=== PATIENT | female | born 1955 | race Caucasian/White ===

== ENCOUNTER 2017-05-31 13:54 | Emergency (ER) | payer BC ==
[~2017-05-31] VITALS: Ht 165.1 cm; Wt 76.2 kg
[2017-05-31 14:00] VITALS: TEMP 36.7; Ht 165.1 cm; Wt 76.2 kg
[2017-05-31] MEDS ORDERED: SODIUM CHLORIDE 0.9% 1000ML 1,000 ML IV STA ×2 (14:06)
[2017-05-31] MEDS ORDERED: BUPR150T7 PO (14:37)
[2017-05-31] MEDS ORDERED: PRT/20 PO (14:37)
[2017-05-31] MEDS ORDERED: VENL150C PO (14:37)
[2017-05-31] MEDS ORDERED: CLBPO15 TOP (14:37)
[2017-05-31] MEDS ORDERED: LEVO25TA5 PO (14:37)
[2017-05-31 14:38] LABS: BASO % 0.2 %; BASO ABS # 0.02 K/uL (0-0.2); COMPLETE YES; EOS % 5.2 %; HEMATOCRIT 38.8 % (37-47); IG% 0.3 %; LYMPH % 18.3 %; MEAN CELL VOLUME 91.1 fL (80-100); MEAN CORPUSCULAR HEMOGLOBIN 30.3 pg (25-34); MEAN CORPUSCULAR HGB CONC 33.2 g/dl (32-36); MEAN PLATELET VOLUME 9.3 fL (7.4-10.4); MONO % 8.9 %; NEUT % 67.1 %; PLATELET COUNT 312 K/uL (130-400); RED BLOOD COUNT 4.26 M/uL (4.2-5.4); WHITE BLOOD COUNT 8.73 K/uL (4.8-10.8)
[2017-05-31] MEDS ORDERED: ACET-1256 PO (14:40)
[2017-05-31] MEDS ORDERED: IBUP-1450 PO (14:40)
[2017-05-31 14:43] LABS: URINE APPEARANCE CLEAR (CLEAR); URINE BILIRUBIN NEG (NEG); URINE COLOR YELLOW; URINE NITRITE NEG (NEG); URINE SPECIFIC GRAVITY 1.014 (1.000-1.030); UROBILINOGEN NEG (NEG)
[2017-05-31 14:51] LABS: MANUAL MICROSCOPIC REQUIRED? NO; REVIEW REQ? NO
[2017-05-31 14:57] LABS: BUN/CREATININE RATIO 14.5 (10-20); CALCIUM 9.3 mg/dl (8.5-10.1); CREATININE 1.2 mg/dl (0.60-1.20); POTASSIUM 4.2 mmol/L (3.5-5.1)
[2017-05-31 15:01] LABS: ALB/GLOB RATIO 0.9 (0.9-2)
--- NOTE | 2017-05-31 15:37 | DIAGNOSTIC IMAGING REPORT ---
ABD/PELVIS WITHOUT FOR STONE CLINICAL HISTORY: 61 years-old Female presenting with LEFT ABD PAIN, HEMATURIA. TECHNIQUE: Multidetector CT of the abdomen and pelvis was performed without the use of intravenous contrast. IV contrast: None. A dose lowering technique was used consistent with the principles of ALARA (as low as reasonably achievable). COMPARISON: None. CT DOSE (mGy.cm): The estimated cumulative dose is 911.44 mGycm. 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 Lung bases: Dependent opacities at the lung bases, likely atelectasis. Normal heart size. No pericardial or pleural effusion. Liver: Normal morphology. No liver lesion. Patent hepatic vasculature. Biliary: No intrahepatic or extrahepatic biliary ductal dilatation. Normal gallbladder. Pancreas: Normal. Spleen: Normal. Adrenal glands: Normal. Kidneys and ureters: Hypodensities in the kidneys incompletely evaluated without intravenous contrast but likely cysts. No hydronephrosis. No nephrolithiasis. Ureters normal. Gastrointestinal tract: Mild stool burden throughout the colon. Mildly dilated cecum. Inspissated material in the distal small bowel may indicate delayed transit. Focal pericolonic inflammatory change at the proximal sigmoid colon with central fat (series 2 image 93). Peritoneal cavity: No free fluid or intraperitoneal gas. Bladder: Normal. Pelvic organs: Uterus and ovaries normal. Vasculature: Minimal atherosclerosis of the normal caliber abdominal aorta. Lymph nodes: Few prominent pericaval and portacaval lymph nodes, likely reactive. Abdominal wall: Fat-containing right inguinal hernia. Musculoskeletal: Normal. IMPRESSION: 1. Findings consistent with epiploic appendage at the sigmoid colon. 2. No evidence of nephrolithiasis. Electronically signed by: Brian Pineda M.D. 05/31/2017 3:36 PM Dictated Date/Time: 05/31/2017 3:27 PM
[2017-05-31] MEDS ORDERED: ONDA4TAB10 SL (16:12)
[2017-05-31] MEDS ORDERED: HYDR-5688 PO (16:12)
--- NOTE | 2017-05-31 16:12 | EMERGENCY ROOM VISIT NOTE ---
History First contact with patient: 14:01 Chief Complaint: ABDOMINAL PAIN Stated Complaint: PAIN IN LOWER LEFT ABDOMINAL AREA Nursing Triage Summary: triage note; pt reports left lower abd pain since this am. pt reports pain is getting worse. pt reports she was seen at [facility] and sent to ed for further eval. History of Present Illness Patient is a 61-year-old white female with past medical history significant for GERD and hypothyroidism who presents the emergency department for evaluation of left sided abdominal pain that started this morning. She noticed pain in the left lower quadrant when she woke up this morning. She describes it as a dull, constant ache, occasionally becomes more sharp. She presently rates it a 5/10. It is better when she lays flat, and worse when she walks or moves. She denies any nausea or vomiting and states that she normally today. She denies any dysuria, frequency, urgency or hematuria. She had a normal formed brown bowel movement this morning without melena or hematochezia. She's never had symptoms similar to this previously. She has a history of GERD which is controlled with medications. She had a colonoscopy at age 49 which was normal for her. She is postmenopausal, denies any significant gynecologic history. She has no known history of diverticulitis. She was seen at a [facility] facility and referred to the emergency department for further care and evaluation. Review of Systems Review of systems as per HPI. All other systems reviewed were negative. 10 systems reviewed. Past Medical/Surgical History Medical Problems: (1) Depression (2) GERD (gastroesophageal reflux disease) (3) Hypothyroidism Surgical Problems: (1) H/O colonoscopy (2) H/O tubal ligation (3) History of herniorrhaphy Electronic medical records are reviewed and summarized as above/below. See Problem List. Social History Smoking Status: Never Smoker Alcohol Use: none Marital Status: Housing Status: lives with significant other Occupation Status: retired Current/Historical Medications Scheduled Acetaminophen (Tylenol), 1,000 MG PO UD Bupropion Hcl (Wellbutrin Sr), 150 MG PO BID Clobetasol Propionate (Clobetasol Propionate), 1 APPLN TOP BID Levothyroxine Sodium (Levothyroxine Sodium), 0.5 TAB PO QAM Pantoprazole (Protonix), 20 MG PO QAM Venlafaxine Hcl (Effexor Xr), 1 CAP PO QAM Scheduled PRN Hydrocodone/Acetaminophen 5MG/325MG (Lott 5MG/325MG), 1-2 TABLETS PO Q4 PRN for Pain Ibuprofen (Motrin), 600 MG PO Q6H PRN for Pain Ondasetron Odt (Zofran Odt), 4 MG SL Q6H PRN for Nausea or Vomiting Physical Exam Vital Signs Date Time Temp Pulse Resp B/P (MAP) Pulse Ox O2 Delivery O2 Flow Rate FiO2 05/31/17 16:26 82 18 107/63 97 Room Air 05/31/17 15:02 81 20 117/64 96 Room Air 05/31/17 14:00 36.7 88 18 116/75 98 Room Air Physical Exam CONSTITUTIONAL: Patient is a pleasant, well-appearing 61-year-old white female who is awake and alert and in mild distress due to her abdominal pain. EYES: Pupils equal, round, reactive to light and accommodation. EOMs intact without nystagmus. Sclera are anicteric. ENT: Tympanic membranes intact, with normal landmarks. External canals are clear. Oral and nasopharynx are clear. Mucous membranes are moist, no lesions , tongue and gums appear normal. NECK: No bruits auscultated. Supple without lymphadenopathy. No thyromegaly. No meningeal signs. Full active range of motion without discomfort. CARDIOVASCULAR: Regular rate and rhythm, with normal S1 and S2, no murmur or gallop or rub is heard. No carotid bruits auscultated. No JVD. Peripheral pulses easily palpable. RESPIRATORY: Breath sounds equal and clear to auscultation without wheezes, rales, or rhonchi heard. Full and equal chest expansion without accessory muscle use or retractions. ABDOMEN: Bowel sounds are present. Abdomen is soft, nondistended, tender to percussion and palpation in the left lower and left upper quadrants, without guarding, rebound or rigidity. INTEGUMENTARY: No lesions or rash, normal skin turgor. LYMPH: No lymphadenopathy. Medical Decision & Procedures ER Provider Diagnostic Interpretation: ABD/PELVIS WITHOUT FOR STONE CLINICAL HISTORY: 61 years-old Female presenting with LEFT ABD PAIN, HEMATURIA. TECHNIQUE: Multidetector CT of the abdomen and pelvis was performed without the use of intravenous contrast. IV contrast: None. A dose lowering technique was used consistent with the principles of ALARA (as low as reasonably achievable). COMPARISON: None. CT DOSE (mGy.cm): The estimated cumulative dose is 911.44 mGycm. FINDINGS: [employer] Software Consultant topogram: Unremarkable. Lung bases: Dependent opacities at the lung bases, likely atelectasis. Normal heart size. No pericardial or pleural effusion. Liver: Normal morphology. No liver lesion. Patent hepatic vasculature. Biliary: No intrahepatic or extrahepatic biliary ductal dilatation. Normal gallbladder. Pancreas: Normal. Spleen: Normal. Adrenal glands: Normal. Kidneys and ureters: Hypodensities in the kidneys incompletely evaluated without intravenous contrast but likely cysts. No hydronephrosis. No nephrolithiasis. Ureters normal. Gastrointestinal tract: Mild stool burden throughout the colon. Mildly dilated cecum. Inspissated material in the distal small bowel may indicate delayed transit. Focal pericolonic inflammatory change at the proximal sigmoid colon with central fat (series 2 image 93). Peritoneal cavity: No free fluid or intraperitoneal gas. Bladder: Normal. Pelvic organs: Uterus and ovaries normal. Vasculature: Minimal atherosclerosis of the normal caliber abdominal aorta. Lymph nodes: Few prominent pericaval and portacaval lymph nodes, likely reactive. Abdominal wall: Fat-containing right inguinal hernia. Musculoskeletal: Normal. IMPRESSION: 1. Findings consistent with epiploic appendage at the sigmoid colon. 2. No evidence of nephrolithiasis. Laboratory Results 05/31/17 14:25 Red Blood Count 4.26, Mean Corpuscular Volume 91.1, Mean Corpuscular Hemoglobin 30.3, Mean Corpuscular Hemoglobin Concent 33.2, Mean Platelet Volume 9.3, Neutrophils (%) (Auto) 67.1, Lymphocytes (%) (Auto) 18.3, Monocytes (%) (Auto) 8.9, Eosinophils (%) (Auto) 5.2, Basophils (%) (Auto) 0.2, Neutrophils # (Auto) 5.85, Lymphocytes # (Auto) 1.60, Monocytes # (Auto) 0.78, Eosinophils # (Auto) 0.45, Basophils # (Auto) 0.02 05/31/17 14:25 Test 05/31/17 14:25 White Blood Count 8.73 K/uL (4.8-10.8) Red Blood Count 4.26 M/uL (4.2-5.4) Hemoglobin 12.9 g/dL (12.0-16.0) Hematocrit 38.8 % (37-47) Mean Corpuscular Volume 91.1 fL (80-100) Mean Corpuscular Hemoglobin 30.3 pg (25-34) Mean Corpuscular Hemoglobin Concent 33.2 g/dl (32-36) Platelet Count 312 K/uL (130-400) Mean Platelet Volume 9.3 fL (7.4-10.4) Neutrophils (%) (Auto) 67.1 % Lymphocytes (%) (Auto) 18.3 % Monocytes (%) (Auto) 8.9 % Eosinophils (%) (Auto) 5.2 % Basophils (%) (Auto) 0.2 % Neutrophils # (Auto) 5.85 K/uL (1.4-6.5) Lymphocytes # (Auto) 1.60 K/uL (1.2-3.4) Monocytes # (Auto) 0.78 K/uL (0.11-0.59) Eosinophils # (Auto) 0.45 K/uL (0-0.5) Basophils # (Auto) 0.02 K/uL (0-0.2) RDW Standard Deviation 45.9 fL (36.4-46.3) RDW Coefficient of Variation 13.7 % (11.5-14.5) Immature Granulocyte % (Auto) 0.3 % Immature Granulocyte # (Auto) 0.03 K/uL (0.00-0.02) Urine Color YELLOW Urine Appearance CLEAR (CLEAR) Urine pH 6.0 (4.5-7.5) Urine Specific [place] 1.014 (1.000-1.030) Urine Protein NEG (NEG) Urine Glucose (UA) NEG (NEG) Urine Ketones NEG (NEG) Urine Occult Blood 2+ (NEG) Urine Nitrite NEG (NEG) Urine Bilirubin NEG (NEG) Urine Urobilinogen NEG (NEG) Urine Leukocyte Esterase NEG (NEG) Urine WBC (Auto) 0 /hpf (0-5) Urine RBC (Auto) 10-30 /hpf (0-4) Urine Hyaline Casts (Auto) 0 /lpf (0-5) Urine Epithelial Cells (Auto) 10-20 /lpf (0-5) Urine Bacteria (Auto) NEG (NEG) Anion Gap 4.0 mmol/L (3-11) Est Creatinine Clear Calc Drug Dose 49.6 ml/min Estimated GFR () 56.1 Estimated GFR (Non- 48.4 BUN/Creatinine Ratio 14.5 (10-20) Calcium Level 9.3 mg/dl (8.5-10.1) Total Bilirubin 0.3 mg/dl (0.2-1) Aspartate Amino Transf (AST/SGOT) 17 U/L (15-37) Alanine Aminotransferase (ALT/SGPT) 27 U/L (12-78) Alkaline Phosphatase 86 U/L (45-117) Total Protein 7.2 gm/dl (6.4-8.2) Albumin 3.5 gm/dl (3.4-5.0) Globulin 3.7 gm/dl (2.5-4.0) Albumin/Globulin Ratio 0.9 (0.9-2) Lipase 297 U/L (73-393) Medications Administered Medications (Trade) Dose Ordered Sig/Rosa Route Start Time Stop Time Status Last Admin Dose Admin Sodium Chloride 1,000 ml @ 999 mls/hr Q1H1M STAT IV 05/31/17 14:06 05/31/17 15:06 DC 05/31/17 14:30 999 MLS/HR Sodium Chloride 1,000 ml @ 250 mls/hr Q4H STAT IV 05/31/17 14:06 05/31/17 16:50 DC 05/31/17 15:17 250 MLS/HR ED Course The patient was seen and evaluated as above. She has no old records are facility for review. IV lock was initiated and she was hydrated with normal saline solution. She declined pain and nausea medications in the emergency department. CBC with differential, CMP, lipase and urinalysis were obtained. Patient's laboratory studies noted a normal white count. H&H is 12.9 and 38.8. Electrolytes, renal functions, liver functions and lipase are all completely within normal limits. Urine dip noted 250 of blood, and urine microscopy noted 2+ occult blood and 10-30 rbc's. No other indicators for infection. Given her left-sided abdominal pain with hematuria, CT scan of the abdomen and pelvis without contract was obtained. Findings are consistent with epiploic appendicitis of the sigmoid colon. There was no evidence for hydronephrosis, nephrolithiasis or ureteral abnormality. There is no free fluid or intraperitoneal gas. Bladder and pelvic organs were unremarkable. All laboratory and diagnostic imaging studies were reviewed with patient and his significant other. Supportive care measures were advised. She was encouraged to use [id number] medications for discomfort, but was provided a prescription for Lott and Zofran to use if needed. She was advised to follow -up with her primary care provider next week for recheck. She is educated on the worrisome signs or symptoms for which she should return to the emergency department. Differential diagnoses entertained included UTI, pyelonephritis, renal colic, diverticulitis, diverticulosis, mass or malignancy, bowel instruction, perforation, abscess, ovarian cyst, among others. Medical Decision See Emergency Department course. [facility] Drug Monitoring Program Search Results: patient reviewed within database, no issues identified Medication Reconcilliation Current Medication List: was personally reviewed by me Blood Pressure Screening Patient's blood pressure: Normal blood pressure Blood pressure disposition: Did not require urgent referral Impression Primary Impression: Epiploic appendagitis Departure Information Prescriptions Ondasetron Odt (ZOFRAN ODT) 4 Mg Tab 4 MG SL Q6H Y for Nausea or Vomiting, #20 TAB Prov: Lauren Khan PA 05/31/17 Hydrocodone/Acetaminophen 5MG/325MG (Lott 5MG/325MG) Tab 1-2 TABLETS PO Q4 Y for Pain, #20 TAB For Initial Treatment Prov: Lauren Khan PA 05/31/17 Referrals Gogo Baker (PCP) Patient Instructions My [facility] Additional Instructions Hydrocodone/Acetaminophen (Lott) 5/325 mg: Take 1-2 pills every four hours for breakthrough pain. Avoid alcohol, operating machinery or dangerous equipment, working on ladders or roofs, DRIVING, or situations where being under the influence may be dangerous. It is recommended to use an [id number] stool softener such as Colace, 100mg twice daily while taking this medication to avoid constipation. Ibuprofen(Motrin, Advil) may be used for fever or pain. Use 600mg every six hours as needed. Take with food. Avoid using more than 2400mg in a 24 hour period. Do not use 2400mg per day for more than three consecutive days without physician direction. Prolonged inappropriate use can lead to stomach upset or ulcers. This is available over the counter and typically comes in 200mg tablets. (AND/OR) Acetaminophen(Tylenol) may be used for fever or pain. Use 1000mg every eight hours as needed. Avoid using more than 3000mg in a 24 hour period. This is available over the counter. Zofran(odansetron) tablets 4mg: Take one and allow it to dissolve in your mouth every four hours as needed for nausea or vomiting. Rest and drink plenty of fluids as tolerated. Slow sips of water or sports drinks are recommended instead of large amounts all at once. Continue current medications. Once your stomach is settled start with a clear liquid diet (jello, soup broth, etc.) and then advance as tolerated. You should avoid full, heavy meals for about 24 hrs from the time your symptoms resolved. Return to the ER immediately for worsening or persistent abdominal pain, vomiting, fevers, chest pains, difficulty breathing, black or bloody stools, worsening of your condition, or as needed. Follow up with your primary physician next week for a recheck of your current condition.
[2017-05-31 16:26] VITALS: BP 107/63; PULSE 82; O2SAT 97
== END 2017-05-31 16:33 | disposition home or self-care (01) ==
LOC: MERGE 13:57 → C.EDB 13:57 → C.EDA 16:33
DX: K63.89 Other specified diseases of intestine (principal); Q43.8 Other specified congenital malformations of intestine; E03.9 Hypothyroidism, unspecified; K21.9 Gastro-esophageal reflux disease without esophagitis; F32.9 Major depressive disorder, single episode, unspecified; Z79.899 Other long term (current) drug therapy

== ENCOUNTER 2017-07-20 14:41 | Emergency (ER) | payer BC ==
[~2017-07-20] VITALS: Ht 165.1 cm; Wt 71.5 kg
[~2017-07-20 14:41] MED LIST: ACET-1256 PO; BUPR150T7 PO; CLBPO15 TOP; HYDR-5688 PO; IBUP-1450 PO; LEVO25TA5 PO; ONDA4TAB10 SL; PRT/20 PO; VENL150C PO
[2017-07-20 14:53] VITALS: Ht 165.1 cm; Wt 71.5 kg
[2017-07-20] MEDS ORDERED: SODIUM CHLORIDE 0.9% 500ML 500 ML IV STA ×2 (15:19→15:21)
[2017-07-20] MEDS ORDERED: ACETAMINOPHEN 325 MG TAB PO STA (15:19)
[2017-07-20] MEDS ORDERED: SODIUM CHLORIDE 0.9% 1000ML 1,000 ML IV STA (15:19)
--- NOTE | 2017-07-20 15:25 | EMERGENCY ROOM VISIT NOTE ---
History Report prepared by Moshe: Carlo Hernandez Under the Supervision of: Dr. Kathryn Wolf M.D. First contact with patient: 15:06 Chief Complaint: ILLNESS Stated Complaint: FEVER, CHILLS, BODY ACHES, HEADACHE History of Present Illness The patient is a 61 year old female who presents to the Emergency Room with complaints of a fever that began 6 days ago. She states that her fevers have been as high as 102.5F. In triage, her temperature was 101F. Over this time, she has also had body aches, a headache, and weakness. She denies any cough, sore throat, shortness of breath, nausea, vomiting, diarrhea, melena, hematochezia, and abnormal urinary symptoms. She has not received an influenza vaccination yet. She has been alternating Tylenol and Ibuprofen since her symptoms began. Her last dose of medication was early this morning. She denies any tick exposure. Source of History: patient Onset: 6 days ago Position: other (global) Symptom Intensity: 101-102F Quality: other (Fever) Timing: waxes/wanes Associated Symptoms: + headache, + weakness, No sorethroat, No cough, No SOB , No nausea, No vomiting, No melena, No hematochezia, No diarrhea, No urinary symptoms Note: She has been having body aches. Review of Systems See HPI for pertinent positives & negatives. A total of 10 systems reviewed and were otherwise negative. Past Medical & Surgical Medical Problems: (1) Depression (2) GERD (gastroesophageal reflux disease) (3) Hypothyroidism Surgical Problems: (1) H/O colonoscopy (2) H/O tubal ligation (3) History of herniorrhaphy Family History Autoimmune disorder FHx: Crohn's disease Kidney disease Social History Smoking Status: Never Smoker Smokeless Tobacco Use: No Drug Use: none Marital Status: Housing Status: lives with family Current/Historical Medications Scheduled Bupropion Hcl (Wellbutrin Sr), 150 MG PO BID Cephalexin Monohydrate (Keflex), 500 MG PO QID Clobetasol Propionate (Clobetasol Propionate), 1 APPLN TOP BID Levothyroxine Sodium (Levothyroxine Sodium), 25 MCG PO QAM Pantoprazole (Protonix), 20 MG PO QAM Venlafaxine Hcl (Effexor Xr), 1 CAP PO QAM Venlafaxine Hcl (Effexor), 37.5 MG PO QAM Scheduled PRN Acetaminophen (Tylenol), 1,000 MG PO DIRECTED PRN for Pain or Fever Ibuprofen (Motrin), 600 MG PO Q6H PRN for Pain Allergies Coded Allergies: No Known Allergies (Unverified , 07/20/17) Physical Exam Vital Signs Date Time Temp Pulse Resp B/P (MAP) Pulse Ox O2 Delivery O2 Flow Rate FiO2 07/20/17 21:06 88 16 124/76 98 07/20/17 20:16 81 07/20/17 20:00 72 20 120/78 95 Room Air 07/20/17 18:28 78 20 118/77 93 Room Air 07/20/17 16:41 07/20/17 16:38 37.5 90 22 139/79 96 Room Air 89 130/82 116/84 07/20/17 16:00 92 20 94/75 94 Room Air 07/20/17 14:53 38.4 102 17 97/65 96 Room Air Physical Exam Vital signs reviewed. General: Well-appearing female, in no significant distress. Warm to the touch, noted to be febrile. HEENT: No scleral icterus, PERRLA, neck supple. Atraumatic. TM's are clear bilaterally. Posterior oropharynx is clear. Cardiovascular: Regular rate and rhythm, no extra sounds. Pulmonary: Clear to auscultation bilaterally, normal work of breathing. Abdomen: Soft, nontender, nondistended, positive bowel sounds. Musculoskeletal: Atraumatic, no peripheral edema. Neurologic: Patient awake alert and oriented x 3. Skin: Warm, dry, no rash Medical Decision & Procedures ER Provider Diagnostic Interpretation: Radiology results as stated below per my review and radiologist interpretation: CHEST ONE VIEW PORTABLE CLINICAL HISTORY: Fever, chills. COMPARISON STUDY: No previous studies for comparison. FINDINGS: The cardiac and mediastinal contours are normal. There is no evidence of focal pulmonary consolidation. There is no evidence of failure. No pleural effusions are visualized.[ There is an old left clavicular fracture. IMPRESSION: No active disease in the chest. Electronically signed by: Amaury Holloway M.D. 07/20/2017 3:45 PM Dictated Date/Time: 07/20/2017 3:45 PM (RENAL)RETROPERITON COMP CLINICAL HISTORY: 61 years-old Female presenting with pyelonephritis, fever. TECHNIQUE: Real-time grayscale and limited color Doppler ultrasound imaging of the kidneys and bladder was performed. COMPARISON: CT from 05/31/2017. FINDINGS: Right kidney: Normal echogenicity. Right kidney measures 10.5 cm. No hydronephrosis. Two prominent anechoic simple appearing cysts noted, the largest measuring 5.7 cm. Normal perfusion. Left kidney: Normal echogenicity. Left kidney measures 10.8 cm. No hydronephrosis. Anechoic simple appearing 1.6 cm cyst at the interpolar region. Normal perfusion. Bladder: No bladder wall thickening. Bilateral ureteral jets present. Other: None. IMPRESSION: 1. Few simple cysts. Otherwise normal renal ultrasound. No obstruction. Electronically signed by: Brian Pineda M.D. 07/20/2017 8:22 PM Dictated Date/Time: 07/20/2017 8:20 PM Laboratory Results 07/20/17 15:30 Red Blood Count 3.86, Mean Corpuscular Volume 89.9, Mean Corpuscular Hemoglobin 30.8, Mean Corpuscular Hemoglobin Concent 34.3, Mean Platelet Volume 9.3, Neutrophils (%) (Auto) 78.4, Lymphocytes (%) (Auto) 6.3, Monocytes (%) (Auto) 14.6, Eosinophils (%) (Auto) 0.3, Basophils (%) (Auto) 0.1, Neutrophils # (Auto ) 9.26, Lymphocytes # (Auto) 0.75, Monocytes # (Auto) 1.72, Eosinophils # (Auto ) 0.04, Basophils # (Auto) 0.01 07/20/17 15:30 Test 07/20/17 15:30 07/20/17 15:45 07/20/17 15:49 07/20/17 17:15 White Blood Count 11.82 K/uL (4.8-10.8) Red Blood Count 3.86 M/uL (4.2-5.4) Hemoglobin 11.9 g/dL (12.0-16.0) Hematocrit 34.7 % (37-47) Mean Corpuscular Volume 89.9 fL (80-100) Mean Corpuscular Hemoglobin 30.8 pg (25-34) Mean Corpuscular Hemoglobin Concent 34.3 g/dl (32-36) Platelet Count 286 K/uL (130-400) Mean Platelet Volume 9.3 fL (7.4-10.4) Neutrophils (%) (Auto) 78.4 % Lymphocytes (%) (Auto) 6.3 % Monocytes (%) (Auto) 14.6 % Eosinophils (%) (Auto) 0.3 % Basophils (%) (Auto) 0.1 % Neutrophils # (Auto) 9.26 K/uL (1.4-6.5) Lymphocytes # (Auto) 0.75 K/uL (1.2-3.4) Monocytes # (Auto) 1.72 K/uL (0.11-0.59) Eosinophils # (Auto) 0.04 K/uL (0-0.5) Basophils # (Auto) 0.01 K/uL (0-0.2) RDW Standard Deviation 43.7 fL (36.4-46.3) RDW Coefficient of Variation 13.3 % (11.5-14.5) Immature Granulocyte % (Auto) 0.3 % Immature Granulocyte # (Auto) 0.04 K/uL (0.00-0.02) Anion Gap 9.0 mmol/L (3-11) Est Creatinine Clear Calc Drug Dose 44.5 ml/min Estimated GFR () 50.9 Estimated GFR (Non- 43.9 BUN/Creatinine Ratio 11.6 (10-20) Calcium Level 8.8 mg/dl (8.5-10.1) Magnesium Level 2.1 mg/dl (1.8-2.4) Total Bilirubin 0.4 mg/dl (0.2-1) Direct Bilirubin 0.1 mg/dl (0-0.2) Aspartate Amino Transf (AST/SGOT) 17 U/L (15-37) Alanine Aminotransferase (ALT/SGPT) 38 U/L (12-78) Alkaline Phosphatase 119 U/L (45-117) Total Protein 7.1 gm/dl (6.4-8.2) Albumin 3.0 gm/dl (3.4-5.0) Lipase 138 U/L (73-393) Thyroid Stimulating Hormone (TSH) 0.885 uIu/ml (0.300-4.500) Influenza Type A (RT-PCR) Neg for Influ A (NEG) Influenza Type A Antigen Neg for Influ A (NEG) Influenza Type B Antigen Neg for Influ B (NEG) Influenza Type B (RT-PCR) Neg for Influ B (NEG) Bedside Lactic Acid Venous 0.68 mmol/L (0.90-1.70) Urine Color YELLOW Urine Appearance CLOUDY (CLEAR) Urine pH 5.0 (4.5-7.5) Urine Specific Jennings 1.015 (1.000-1.030) Urine Protein 1+ (NEG) Urine Glucose (UA) NEG (NEG) Urine Ketones TRACE (NEG) Urine Occult Blood 3+ (NEG) Urine Nitrite POS (NEG) Urine Bilirubin NEG (NEG) Urine Urobilinogen NEG (NEG) Urine Leukocyte Esterase LARGE (NEG) Urine WBC (Auto) >30 /hpf (0-5) Urine RBC (Auto) 10-30 /hpf (0-4) Urine Hyaline Casts (Auto) 1-5 /lpf (0-5) Urine Epithelial Cells (Auto) 0-5 /lpf (0-5) Urine Bacteria (Auto) 4+ (NEG) Laboratory results per my review. Medications Administered Medications (Trade) Dose Ordered Sig/Rosa Route Start Time Stop Time Status Last Admin Dose Admin Sodium Chloride 500 ml @ 999 mls/hr Q31M STAT IV 07/20/17 15:19 07/20/17 15:49 DC 07/20/17 15:59 999 MLS/HR Sodium Chloride 1,000 ml @ 150 mls/hr Q6H40M STAT IV 07/20/17 15:19 07/20/17 21:27 DC 07/20/17 15:57 150 MLS/HR Acetaminophen (Tylenol Tab) 650 mg NOW STAT PO 07/20/17 15:19 07/20/17 15:21 DC 07/20/17 15:54 650 MG Sodium Chloride 500 ml @ 999 mls/hr Q31M STAT IV 07/20/17 15:21 07/20/17 15:51 DC 07/20/17 15:59 999 MLS/HR Ceftriaxone Sodium (Rocephin Inj) 1 gm NOW STAT IV 07/20/17 18:08 07/20/17 18:10 DC 07/20/17 18:26 1 GM Ketorolac Tromethamine (Toradol Inj) 30 mg NOW STAT IV 07/20/17 20:49 07/20/17 20:50 DC 07/20/17 20:49 30 MG ED Course 1506: Past medical records reviewed. The patient was evaluated in room C3. A complete history and physical examination was performed. 1519: Ordered Tylenol Tab 650 mg PO, Sodium Chloride 1000 ml @ 150 mls/hr IV, Sodium Chloride 500 ml @ 999 mls/hr IV 1521: Ordered Sodium Chloride 500 ml @ 999 mls/hr IV 1808: Ordered Rocephin Inj 1 gm IV 2048: Ordered Toradol Inj 30 mg IV 2049: Upon reevaluation, the patient appeared to have improvement of her symptoms. I discussed findings with her. She verbalized agreement of the treatment plan. She was discharged home. Medical Decision DDx: Influenza, other viral illness, pneumonia, urinary tract infection, metabolic abnormality, medication effect, cellulitis, meningitis, intra-abdominal source. This pt was evaluated and appeared to be in no distress. IV access was obtained and lab work was drawn. Pt was hydrated with NSS and given tylenol for fever. Lab work was obtained and reveals a WBC of 11.8. Blood cultures are pending, lactic acid is WNL. UA is indicative of infection. Pt was given 1 gm IV ceftriaxone and IV toradol for pain. Renal US was performed and is normal. Flu swab is negative. Pt was d/c to care of with Rx for keflex 500 mg QID x 7 days. She will f/u with her PCP this week for reevaluation and return to the ED for worsening of symptoms or any medical concerns. Medication Reconcilliation Current Medication List: was personally reviewed by me Blood Pressure Screening Patient's blood pressure: Normal blood pressure Blood pressure disposition: Did not require urgent referral Impression Primary Impression: Cystitis Additional Impression: Fever Scribe Attestation The scribe's documentation has been prepared under my direction and personally reviewed by me in its entirety. I confirm that the note above accurately reflects all work, treatment, procedures, and medical decision making performed by me. Departure Information Dispostion Home / Self-Care Prescriptions Cephalexin Monohydrate (Keflex) 500 Mg Cap 500 MG PO QID, #28 CAP Prov: Kathryn Wolf M.D. 07/20/17 Referrals Gogo Baker (PCP) Forms HOME CARE DOCUMENTATION FORM, IMPORTANT VISIT INFORMATION, WORK / SCHOOL INSTRUCTIONS Patient Instructions My [facility] Additional Instructions Diagnosis: Cystitis, fever Keflex 500 mg 4 times daily for 7 days. Please drink plenty of clear fluids. Tylenol 650 mg every 6 hours as needed for fever or pain. Ibuprofen 600 mg every 6 hours as needed for pain or fever with food. Follow-up with your physician within the next 2 days for reevaluation. Return to the ER for worsening of symptoms or any medical concerns. Problem Qualifiers
--- NOTE | 2017-07-20 15:46 | DIAGNOSTIC IMAGING REPORT ---
CHEST ONE VIEW PORTABLE CLINICAL HISTORY: Fever, chills. COMPARISON STUDY: No previous studies for comparison. FINDINGS: The cardiac and mediastinal contours are normal. There is no evidence of focal pulmonary consolidation. There is no evidence of failure. No pleural effusions are visualized.[ There is an old left clavicular fracture. IMPRESSION: No active disease in the chest. Electronically signed by: Amaury Holloway M.D. 07/20/2017 3:45 PM Dictated Date/Time: 07/20/2017 3:45 PM
[2017-07-20] MEDS ORDERED: EFF/375 PO (15:59)
[2017-07-20 16:09] LABS: BASO % 0.1 %; BASO ABS # 0.01 K/uL (0-0.2); COMPLETE YES; EOS % 0.3 %; HEMATOCRIT 34.7 % (37-47); IG% 0.3 %; LYMPH % 6.3 %; LYMPH ABS # 0.75 K/uL (1.2-3.4); MEAN CELL VOLUME 89.9 fL (80-100); MEAN CORPUSCULAR HEMOGLOBIN 30.8 pg (25-34); MEAN CORPUSCULAR HGB CONC 34.3 g/dl (32-36); MEAN PLATELET VOLUME 9.3 fL (7.4-10.4); MONO % 14.6 %; NEUT % 78.4 %; PLATELET COUNT 286 K/uL (130-400); RED BLOOD COUNT 3.86 M/uL (4.2-5.4); WHITE BLOOD COUNT 11.82 K/uL (4.8-10.8)
[2017-07-20 16:26] LABS: BUN/CREATININE RATIO 11.6 (10-20); CALCIUM 8.8 mg/dl (8.5-10.1); CREATININE 1.3 mg/dl (0.60-1.20); MAGNESIUM 2.1 mg/dl (1.8-2.4)
[2017-07-20 16:37] LABS: THYROID STIMULATING HORMONE 0.885 uIu/ml (0.300-4.500)
[2017-07-20 16:38] VITALS: TEMP 37.5
[2017-07-20 17:28] LABS: URINE APPEARANCE CLOUDY (CLEAR); URINE BILIRUBIN NEG (NEG); URINE COLOR YELLOW; URINE EPITHELIAL CELL AUTO 0-5 /lpf (0-5); URINE NITRITE POS (NEG); URINE SPECIFIC GRAVITY 1.015 (1.000-1.030); UROBILINOGEN NEG (NEG); ZZUR CULT IF INDIC CLEAN CATCH YES
[2017-07-20 17:29] LABS: MANUAL MICROSCOPIC REQUIRED? NO; REVIEW REQ? NO
[2017-07-20] MEDS ORDERED: CEFTRIAXONE SOD INJ 1 GM ADDVIAL IV STA (18:08)
[2017-07-20 18:32] LABS: INFLUENZA A PCR Neg for Influ A (NEG); INFLUENZA B PCR Neg for Influ B (NEG)
--- NOTE | 2017-07-20 20:24 | DIAGNOSTIC IMAGING REPORT ---
(RENAL)RETROPERITON COMP CLINICAL HISTORY: 61 years-old Female presenting with pyelonephritis, fever. TECHNIQUE: Real-time grayscale and limited color Doppler ultrasound imaging of the kidneys and bladder was performed. COMPARISON: CT from 05/31/2017. FINDINGS: Right kidney: Normal echogenicity. Right kidney measures 10.5 cm. No hydronephrosis. Two prominent anechoic simple appearing cysts noted, the largest measuring 5.7 cm. Normal perfusion. Left kidney: Normal echogenicity. Left kidney measures 10.8 cm. No hydronephrosis. Anechoic simple appearing 1.6 cm cyst at the interpolar region. Normal perfusion. Bladder: No bladder wall thickening. Bilateral ureteral jets present. Other: None. IMPRESSION: 1. Few simple cysts. Otherwise normal renal ultrasound. No obstruction. Electronically signed by: Brian Pineda M.D. 07/20/2017 8:22 PM Dictated Date/Time: 07/20/2017 8:20 PM
[2017-07-20] MEDS ORDERED: CEPH500C PO (20:40)
[2017-07-20] MEDS ORDERED: KETOROLAC TROMETHAMINE 30 MG/ML VIAL IV STA (20:49)
[2017-07-20 21:06] VITALS: BP 124/76; PULSE 88; O2SAT 98
== END 2017-07-20 21:07 | disposition home or self-care (01) ==
LOC: C.EDB 14:43 → C.EDC 21:07
DX: N30.90 Cystitis, unspecified without hematuria (principal); F32.9 Major depressive disorder, single episode, unspecified; K21.9 Gastro-esophageal reflux disease without esophagitis; E03.9 Hypothyroidism, unspecified; Z98.51 Tubal ligation status; Z84.1 Family history of disorders of kidney and ureter; Z79.899 Other long term (current) drug therapy

== ENCOUNTER → 2017-11-29 | Day surgery (SDC) | payer BC ==
[2017-11-10 10:34] VITALS: Ht 165.1 cm; Wt 71.8 kg
[~2017-11-29] VITALS: Ht 165.1 cm; Wt 71.8 kg
[~2017-11-29] MED LIST changes: -ACET-1256 PO; +BUPR-79 PO; -BUPR150T7 PO; +CALCTAB30 PO; +CHOL1000 PO; -CLBPO15 TOP; -HYDR-5688 PO; -IBUP-1450 PO; -LEVO25TA5 PO; +LEVO50TA6 PO; +LIDOCAINE HCL 2% 2 ML VIAL (20MG/ML) ONE; +MIDAZOLAM HCL 1 MG/ML 2ML VIAL ONE; -ONDA4TAB10 SL; +ONDANSETRON INJ 2 MG/ML 2 ML VIAL ONE; +PANT40TA PO; +PROPOFOL IV EMULSION 10 MG/ML 20 ML VIAL IV ONE; -PRT/20 PO; +SODIUM CHLORIDE 0.9% 500ML 500 ML IV ONE; -VENL150C PO; +VENL150T33 PO; +VENL37.593 PO
[2017-11-29 10:13] VITALS: TEMP 36.9
--- NOTE | 2017-11-29 10:50 | Endo History and Physical ---
History & Physical Date of Service: Nov 29, 2017. Chief Complaint: screening Referring Physician: Gogo TATE History of Present Illness 62 yo CF who presents for screening colonoscopy. Past Surgical History Hx Cardiac Surgery: No Hx Internal Defibrillator: No Hx Pacemaker: No Hx Abdominal Surgery: Yes (UMBILICAL/INGUINAL HERNIA, TUBAL LIGATION) Hx of Implantable Prosthesis: No Hx Post-Op Nausea and Vomiting: No Hx Cancer Surgery: No Hx Thoracic Surgery: No Hx Orthopedic: No Hx Urinary Tract Surgery: No Family History None Social History Smoking Status: Never Smoker Hx Substance Use: No Hx Alcohol Use: Yes (OCCASIONALLY) Allergies Coded Allergies: No Known Allergies (Verified , 11/29/17) Current Medications Reported Home Medications Medications Dose Route/Sig Max Daily Dose Days Date Category Vitamin D3 (Cholecalciferol) 1,000 Unit Tab 1 Tab PO QAM 11/10/17 Reported Calcium/Magnesium/Zinc (Gljvqdx-Pyscepmee-Ooxx) 1 Tab Tab 1 Tab PO QAM 11/10/17 Reported Venlafaxine Hcl Er (Venlafaxine Hcl) 150 Mg Tab 1 Tab PO QAM 11/10/17 Reported Venlafaxine Extended Rel (Venlafaxine Hcl) 37.5 Mg Cap 37.5 Mg PO QAM 11/10/17 Reported Wellbutrin Sr (Bupropion HCl) 150 Mg Ertab 150 Mg PO BID 11/10/17 Reported Protonix (Pantoprazole Sodium) 40 Mg Tab 40 Mg PO QAM 11/10/17 Reported Levothyroxine Sodium 50 Mcg Tab 1 Tab PO QAM 11/10/17 Reported Vital Signs Weight (Kilograms): 71.82 Height (Feet): 5 Height (Inches): 5 Date Time Temp Pulse Resp B/P (MAP) Pulse Ox O2 Delivery O2 Flow Rate FiO2 11/29/17 10:13 36.9 80 20 131/87 (102) 98 Room Air Physical Exam General Appearance: WD/WN, no apparent distress Respiratory/Chest: Auscultation: breath sounds normal Cardiovascular: Heart Auscultation: RRR Abdomen: Bowel Sounds: normal Inspection & Palpation: soft, non-distended, no tenderness, guarding & rebound Assessment and Plan Assessment: 62 yo CF who presents for screening colonoscopy. Plan: Proceed with colonoscopy.
--- NOTE | 2017-11-29 11:19 | Discharge Instructions ---
Endoscopy Patient Instructions Date / Procedure(s) Performed Nov 29, 2017. Colonoscopy Allergy Information Coded Allergies: No Known Allergies (Verified , 11/29/17) Discharge Date / Findings Nov 29, 2017. Internal hemorrhoids Medication Instructions OK to resume all medications today as prescribed Reported Home Medications Medications Dose Route/Sig Max Daily Dose Days Date Category Vitamin D3 (Cholecalciferol) 1,000 Unit Tab 1 Tab PO QAM 11/10/17 Reported Calcium/Magnesium/Zinc (Ijpltyx-Ilnjjqbfw-Tcwl) 1 Tab Tab 1 Tab PO QAM 11/10/17 Reported Venlafaxine Hcl Er (Venlafaxine Hcl) 150 Mg Tab 1 Tab PO QAM 11/10/17 Reported Venlafaxine Extended Rel (Venlafaxine Hcl) 37.5 Mg Cap 37.5 Mg PO QAM 11/10/17 Reported Wellbutrin Sr (Bupropion HCl) 150 Mg Ertab 150 Mg PO BID 11/10/17 Reported Protonix (Pantoprazole Sodium) 40 Mg Tab 40 Mg PO QAM 11/10/17 Reported Levothyroxine Sodium 50 Mcg Tab 1 Tab PO QAM 11/10/17 Reported Provider Instructions Activity Restrictions - No exercising or heavy lifting for 24 hours. - Do not drink alcohol the day of the procedure. - Do not drive a car or operate machinery until the day after the procedure. - Do not make any important decisions or sign important papers in 24 hours after the procedure. Following Day: - Return to full activity which may include returning to work/school. Diet Start your diet with liquids and light foods (jello, soup, juice, toast). Then eat your usual diet if not nauseated. Treatment For Common After Affects For mild abdominal pain, bloating, or excessive gas: - Rest - Eat lightly - Lie on right side Follow-Up Information Follow-up with Gogo TATE as scheduled Anesthesia Information What You Should Know You have had a procedure that required some medicine to reduce anxiety and discomfort. This treatment is called moderate sedation. After receiving the treatment, you may be sleepy, but you will be able to breathe on your own. The effects of the treatment may last for several hours. Follow these instructions along with Activity/Diet recommendations noted above: * Do NOT do anything where dizziness or clumsiness would be dangerous. * Rest quietly at home today, then you can be up and about tomorrow. * Have a responsible person stay with you the rest of today. * You may have had an I.V. today. If so, you may take the dressing off later today. Recommendations Call your doctor if: * Trouble breathing * Continuous vomiting for more than 24 hours * Temperature above 101 degrees * Severe abdominal pain or bloating * Pain not relieved by pain medicine ordered * There is increased drainage or redness from any incision * A large amount of rectal bleeding greater than 2-3 tablespoons. (If you had a polyp/s removed or have hemorrhoids, a small amount of blood - from the rectum is to be expected.) * You have any unanswered questions or concerns. IN THE EVENT OF A SERIOUS EMERGENCY, GO TO THE NEAREST EMERGENCY ROOM Your discharge instructions were prepared by provider Miguel Washington. Patient Instructions Signature Page Eda Arreguin Patient (or Guardian) Signature/Date: I have read and understand the instructions given to me by my caregivers. Caregiver/RN/Doctor Signature/Date: The above-named patient and/or guardian has received patient instructions on this date. + Original Patient Signature Page (only) stays with chart. Please make copy for patient.
--- NOTE | 2017-11-29 11:21 | GI REPORT ---
Procedure Date: 11/29/2017 10:38 AM Procedure: Colonoscopy Indications: Screening for colorectal malignant neoplasm Medicines: Monitored Anesthesia Care Complications: No immediate complications. Estimated Blood Loss: Estimated blood loss: none. Procedure: Pre-Anesthesia Assessment: - Prior to the procedure, a History and Physical was performed, and patient medications and allergies were reviewed. The patient's tolerance of previous anesthesia was also reviewed. The risks and benefits of the procedure and the sedation options and risks were discussed with the patient. All questions were answered, and informed consent was obtained. Prior Anticoagulants: The patient has taken no previous anticoagulant or antiplatelet agents. ASA Grade Assessment: II - A patient with mild systemic disease. After reviewing the risks and benefits, the patient was deemed in satisfactory condition to undergo the procedure. After I obtained informed consent, the scope was passed under direct vision. Throughout the procedure, the patient's blood pressure, pulse, and oxygen saturations were monitored continuously. The scope was introduced through the anus and advanced to the terminal ileum. The colonoscopy was performed without difficulty. The patient tolerated the procedure well. The quality of the bowel preparation was good. The terminal ileum, ileocecal valve, appendiceal orifice, and rectum were photographed. Findings: The perianal and digital rectal examinations were normal. Non-bleeding internal hemorrhoids were found during retroflexion. The hemorrhoids were small. Impression: - Non-bleeding internal hemorrhoids. - No specimens collected. Recommendation: - Resume previous diet. - Continue present medications. - Repeat colonoscopy in 10 years for surveillance. - Return to primary care physician as previously scheduled. Miguel Washington DO 11/29/2017 11:21:14 AM This report has been signed electronically. Note Initiated On: 11/29/2017 10:38 AM I attest to the content of the Intraoperative Record and orders documented therein, exceptions below
--- NOTE | 2017-11-29 11:38 | Anesthesiology Progress Note ---
Anesthesia Post Op Note Date & Time Nov 29, 2017 at 11:37 Vital Signs Pain Intensity: 0 Vital Signs Past 12 Hours Date Time Temp Pulse Resp B/P (MAP) Pulse Ox O2 Delivery O2 Flow Rate FiO2 11/29/17 10:13 36.9 80 20 131/87 (102) 98 Room Air Notes Mental Status: alert / awake / arousable, participated in evaluation Pt Amnestic to Procedure: Yes Nausea / Vomiting: adequately controlled Pain: adequately controlled Airway Patency, RR, SpO2: stable & adequate BP & HR: stable & adequate Hydration State: stable & adequate Anesthetic Complications: no major complications apparent
[2017-11-29 11:49] VITALS: BP 120/79; PULSE 69; O2SAT 100
== END | disposition home or self-care (01) ==
LOC: C.GI 09:39
PROVIDERS: ATTEND Internal Medicine
DX: Z12.11 Encounter for screening for malignant neoplasm of colon (principal); K64.8 Other hemorrhoids; F32.9 Major depressive disorder, single episode, unspecified; Z98.890 Other specified postprocedural states; Z98.51 Tubal ligation status